=== PATIENT | female | born 1945 | race Caucasian/White ===

== ENCOUNTER 2020-03-01 15:20 | Emergency (ER) | payer MEDICARE ==
[~2020-03-01] VITALS: Ht 154.9 cm; Wt 60.0 kg
[2020-03-01 15:50] VITALS: BP 167/89
== END 2020-03-01 17:12 | disposition left against medical advice (07) ==
LOC: ER 15:20
DX: S01.511A Laceration without foreign body of lip, initial encounter (principal); M25.522 Pain in left elbow; Z53.21 Procedure and treatment not carried out due to patient leaving prior to being seen by health care provider; W18.09XA Striking against other object with subsequent fall, initial encounter; Y93.89 Activity, other specified; Y92.89 Other specified places as the place of occurrence of the external cause; Y99.8 Other external cause status

== ENCOUNTER 2021-07-11 14:55 | Emergency (ER) | payer MEDICARE ==
[~2021-07-11] VITALS: Ht 154.9 cm; Wt 56.3 kg
--- NOTE | 2021-07-11 15:50 | RAD ---
AP chest. HISTORY: Syncope AP view was taken of the chest. Lungs are free of acute infiltrates. The aorta is mildly enlarged and tortuous. The heart is upper normal in size. There is no pleural effusion. IMPRESSION: 1. No acute infiltrates. Electronically signed by: Brandon Newell MD (07/11/2021 3:48 PM) [id number]
[2021-07-11 16:04] LABS: BASO % 1 % (0-3); EOS # 0.1 x10^3/uL (0.0-0.7); EOS % 1 % (0-3); HEMATOCRIT 36.2 % (36.0-47.0); LYMPH # 1.1 x10^3/uL (1.0-4.8); LYMPH % 20 % (24-48); MEAN CORPUSCULAR HEMOGLOBIN 29 pg (25-35); MEAN CORPUSCULAR HGB CONC 33 g/dL (31-37); MEAN CORPUSCULAR VOLUME 88 fL (79-100); MONO # 0.4 x10^3/uL (0.0-1.1); MONO % 8 % (0-9); NEUT # 3.8 x10^3/uL (1.8-7.7); NEUT % 70 % (31-73); PLATELET COUNT 278 x10^3/uL (140-400); RED CELL DISTRIBUTION WIDTH 14.4 % (11.5-14.5); WHITE BLOOD COUNT 5.4 x10^3/uL (4.0-11.0)
[2021-07-11 16:10] LABS: AMPHETAMINE/METHAMPHETAMINE NEG (NEG); BARBITURATES NEG (NEG); BENZODIAZEPINES NEG (NEG); CANNABINOIDS NEG (NEG); COCAINE NEG (NEG); METHADONE NEG (NEG); OPIATES NEG (NEG); PHENCYCLIDINE NEG (NEG)
[2021-07-11 16:12] LABS: CALCIUM 8.7 mg/dL (8.5-10.1); CREATININE 0.9 mg/dL (0.6-1.0); GFR 60.9; POTASSIUM 3.9 mmol/L (3.5-5.1)
[2021-07-11 16:18] LABS: ALBUMIN 3.2 g/dL (3.4-5.0); ALBUMIN/GLOBULIN RATIO 0.8 (1.0-1.7); TOTAL BILIRUBIN 0.3 mg/dL (0.2-1.0); TOTAL PROTEIN 7.2 g/dL (6.4-8.2)
--- NOTE | 2021-07-11 17:08 | RAD ---
CT Head and cervical spine without contrast Indication: Reason: trip/fall / Spl. Instructions: / History: Date of service:07/11/2021 4:46 PM. Comparison: None available. Technique: Helical acquisitions are obtained from the foramen magnum to the vertex and through the ce rvical spine without IV contrast. Sagittal and coronal reformatted images are obtained and reviewed . CT head findings: The ventricles are midline without evidence of dilatation. Mild atrophy is noted. Normal briggs-white differentiation is maintained. There is no extra axial fluid collection, intraparenchymal hemorrhage or mass lesion. The visualized portions of the orbits, paranasal sinuses and the mastoid air cells appear clear. The calvarium is intact. Impression: 1. No acute intracranial process detected. End impression CT cervical spine findings: Normal sagittal alignment is preserved. Craniocervical and C1-2 articulation appears preserved. The v ertebral body heights are maintained. There is narrowing of C5/6 and C6/7 disc spaces, the remainder of intravertebral disc spaces are maintained. There is no sarah or retrolisthesis. There is no perc ajay of facets No prevertebral soft tissue swelling is identified. There are no fractures. No defini te lymphadenopathy or masses are seen within the neck. The visualized thyroid and salivary glands ap pears preserved. Impression: No acute abnormality seen in the CT scan cervical spine. 2. Spondylotic changes and multilevel disc degenerative changes are present. PQRS Compliance Statement: One or more of the following individualized dose reduction techniques were utilized for this examinat ion: 1. Automated exposure control 2. Adjustment of the mA and/or kV according to patient size 3. Use of iterative reconstruction technique Electronically signed by: Ale Parker MD (07/11/2021 5:06 PM) [facility]PITALCailin
[2021-07-11 17:10] VITALS: BP 144/65
--- NOTE | 2021-07-11 17:25 | PHYS DOC ---
Past Medical History Past Medical History: Hypertension Past Surgical History: No Surgical History Smoking Status: Never Smoker Alcohol Use: None General Adult EDM: Chief Complaint: SYNCOPE HPI: HPI: 75-year-old female past medical history of hypertension, hyperlipidemia, essential tremors (on propanolol) and "plaque buildup, I'm on a statin," presents to the ED with complaints [place]. Reports she fell forward landing on her knees and hit her head. Son states she passed out and rolled her eyes backwards, patient states she was conscious the entire time. Patient with no prior head or neck injury. No history of syncope. Has no underlying cardiac arrhythmias or history of coronary artery disease but does have a stress test next week with Dr. Faustin in [place]. Denies any alcohol or drug use. Has no active complaints in the ED. States "I think my son was overreacting when I fell." Pt recalls the features of the gentlemen that helped her up and states "I remember everything." Review of Systems: Review of Systems: Constitutional: Denies fever or chills. [] Eyes: Denies change in visual acuity. [] HENT: Denies nasal congestion or sore throat. [] Respiratory: Denies cough or shortness of breath. [] Cardiovascular: Denies chest pain or edema. [] GI: Denies abdominal pain, nausea, vomiting, bloody stools or diarrhea. [] : Denies saddle anesthesia or incontinence Musculoskeletal: Denies back pain or joint pain. [] Integument: Denies rash or diaphoresis Neurologic: Denies headache or midline neck pain Endocrine: Denies polyuria or polydipsia. [] Lymphatic: Denies swollen glands. [] Psychiatric: Denies depression or anxiety. [] Heart Score: C/O Chest Pain: No Risk Factors: Risk Factors: DM, Current or recent (<one month) smoker, HTN, HLP, family history of CAD, obesity. Risk Scores: Score 0 - 3: 2.5% MACE over next 6 weeks - Discharge Home Score 4 - 6: 20.3% MACE over next 6 weeks - Admit for Clinical Observation Score 7 - 10: 72.7% MACE over next 6 weeks - Early Invasive Strategies Allergies: Allergies: Allergies Coded Allergies Type Severity Reaction Last Updated Verified No Known Drug Allergies 07/11/21 No Physical Exam: PE: Constitutional: Well developed, well nourished, no acute distress, non-toxic appearance. HENT: Normocephalic, atraumatic, moist mucous membranes Eyes: Both equal and reactive, EOMI, conjunctiva normal, no discharge. Neck: Normal range of motion, supple,Nexus C-spine criteria are negative: There is no post midline tenderness, the patient is not intoxicated, there is a normal level of alertness, there are no focal neurologic deficits and there are no distracting injuries Cardiovascular: S1/2 present, regular rhythm Lungs & Thorax: Speaking in full sentences, bilateral equal chest rise, no t achypnea or increased work of breathing Abdomen: soft, no tenderness, Skin: Warm, dry, no erythema, no rash. [] Back: No midline spinal step-offs or tenderness, no CVA tenderness. [] Extremities: No tenderness, no cyanosis, no unilateral lower extremity edema Neurologic: Alert and oriented X 3, normal motor function, normal sensory function, no focal deficits noted. [] Psychologic: Affect normal, judgement normal, mood normal. [] Current Patient Data: Labs: Laboratory Tests Test 07/11/21 15:50 07/11/21 15:53 White Blood Count 5.4 x10^3/uL (4.0-11.0) Red Blood Count 4.10 x10^6/uL (3.50-5.40) Hemoglobin 12.0 g/dL (12.0-15.5) Hematocrit 36.2 % (36.0-47.0) Mean Corpuscular Volume 88 fL (79-100) Mean Corpuscular Hemoglobin 29 pg (25-35) Mean Corpuscular Hemoglobin Concent 33 g/dL (31-37) Red Cell Distribution Width 14.4 % (11.5-14.5) Platelet Count 278 x10^3/uL (140-400) Neutrophils (%) (Auto) 70 % (31-73) Lymphocytes (%) (Auto) 20 % (24-48) L Monocytes (%) (Auto) 8 % (0-9) Eosinophils (%) (Auto) 1 % (0-3) Basophils (%) (Auto) 1 % (0-3) Neutrophils # (Auto) 3.8 x10^3/uL (1.8-7.7) Lymphocytes # (Auto) 1.1 x10^3/uL (1.0-4.8) Monocytes # (Auto) 0.4 x10^3/uL (0.0-1.1) Eosinophils # (Auto) 0.1 x10^3/uL (0.0-0.7) Basophils # (Auto) 0.0 x10^3/uL (0.0-0.2) Sodium Level 138 mmol/L (136-145) Potassium Level 3.9 mmol/L (3.5-5.1) Chloride Level 105 mmol/L (98-107) Carbon Dioxide Level 28 mmol/L (21-32) Anion Gap 5 (6-14) L Blood Urea Nitrogen 27 mg/dL (7-20) H Creatinine 0.9 mg/dL (0.6-1.0) Estimated GFR (Cockcroft-Gault) 60.9 BUN/Creatinine Ratio 30 (6-20) H Glucose Level 156 mg/dL (70-99) H Calcium Level 8.7 mg/dL (8.5-10.1) Magnesium Level 2.0 mg/dL (1.8-2.4) Total Bilirubin 0.3 mg/dL (0.2-1.0) Aspartate Amino Transferase (AST) 18 U/L (15-37) Alanine Aminotransferase (ALT) 25 U/L (14-59) Alkaline Phosphatase 90 U/L (46-116) Troponin I High Sensitivity 6 ng/L (4-50) ZO-Vmy-F-Type Natriuretic Peptide 296 pg/mL (0-449) Total Protein 7.2 g/dL (6.4-8.2) Albumin 3.2 g/dL (3.4-5.0) L Albumin/Globulin Ratio 0.8 (1.0-1.7) L Urine Opiates Screen Neg (NEG) Urine Methadone Screen Neg (NEG) Urine Barbiturates Neg (NEG) Urine Phencyclidine Screen Neg (NEG) Urine Amphetamine/Methamphetamine Neg (NEG) Urine Benzodiazepines Screen Neg (NEG) Urine Cocaine Screen Neg (NEG) Urine Cannabinoids Screen Neg (NEG) Urine Ethyl Alcohol Neg (NEG) Laboratory Tests 07/11/21 15:50 Laboratory Tests 07/11/21 15:50 Vital Signs: Vital Signs Date Time Temp Pulse Resp B/P (MAP) Pulse Ox O2 Delivery O2 Flow Rate FiO2 07/11/21 16:00 66 14 133/70 (91) 100 07/11/21 15:15 98.3 Room Air 98.3 EKG: EKG: Patient is 70 bpm, no axis deviation, normal intervals, S1Q3T3 present, no ST elevation or ST depression, no active chest pain or shortness of breath Radiology/Procedures: Radiology/Procedures: IMAGING REPORT Signed PATIENT: ANITA CASTRO JACCOUNT: [id number] : 1945 LOCATION: ER AGE: 75 SEX: F EXAM STATUS: PRE ER ORD. PHYSICIAN: KENDRA ACOSTA DO REASON: trip/fall PROCEDURE: CT HEAD AND CERVICAL SPINE WO CT Head and cervical spine without contrast Indication: Reason: trip/fall / Spl. Instructions: / History: Date of service:07/11/2021 4:46 PM. Comparison: None available. Technique: Helical acquisitions are obtained from the foramen magnum to the vertex and through the cervical spine without IV contrast. Sagittal and coronal reformatted images are obtained and reviewed. CT head findings: The ventricles are midline without evidence of dilatation. Mild atrophy is noted. Normal briggs-white differentiation is maintained. There is no extra axial fluid collection, intraparenchymal hemorrhage or mass lesion. The visualized portions of the orbits, paranasal sinuses and the mastoid air cells appear clear. The calvarium is intact. Impression: 1. No acute intracranial process detected. End impression CT cervical spine findings: Normal sagittal alignment is preserved. Craniocervical and C1-2 articulation appears preserved. The vertebral body heights are maintained. There is narrowing of C5/6 and C6/7 disc spaces, the remainder of intravertebral disc spaces are maintained. There is no sarah or retrolisthesis. There is no perching of facets No prevertebral soft tissue swelling is identified. There are no fractures. No definite lymphadenopathy or masses are seen within the neck. The visualized thyroid and salivary glands appears preserved. Impression: No acute abnormality seen in the CT scan cervical spine. 2. Spondylotic changes and multilevel disc degenerative changes are present. PQRS Compliance Statement: One or more of the following individualized dose reduction techniques were utilized for this examination: 1. Automated exposure control 2. Adjustment of the mA and/or kV according to patient size 3. Use of iterative reconstruction technique Electronically signed by: Ale Parker MD (07/11/2021 5:06 PM) [facility] DICTATED and SIGNED BY: ALE PARKER MD DATE: 07/11/21 170 IMAGING REPORT Signed PATIENT: ANITA CASTRO JACCOUNT: [id number] : 1945 LOCATION: ER AGE: 75 SEX: F EXAM STATUS: PRE ER ORD. PHYSICIAN: KENDRA ACOSTA DO REASON: syncope PROCEDURE: PORTABLE CHEST 1V AP chest. HISTORY: Syncope AP view was taken of the chest. Lungs are free of acute infiltrates. The aorta is mildly enlarged and tortuous. The heart is upper normal in size. There is no pleural effusion. IMPRESSION: 1. No acute infiltrates. Electronically signed by: Brandon Newell MD (07/11/2021 3:48 PM) [id number] DICTATED and SIGNED BY: BRANDON NEWELL MD DATE: 07/11/21 1546 Course & Med Decision Making: Course & Med Decision Making Pertinent Labs and Imaging studies reviewed. (See chart for details) Concern for accidental mechanical fall with blunt head injury and possible loss of consciousness. CT imaging with no traumatic injury. Basic labs unremarkable. Has no active chest pain, shortness of breath or confusion. Patient is hemodynamically stable, well-appearing with no signs of trauma. Denies any recent illnesses and is tolerating oral intake. Will discharge home with strict ED return precautions were given for confusion, severe headache, nausea or vomiting. Encouraged urgent outpatient follow-up with PMD for reevaluation. Life-threatening processes were considered but are low suspicion at this time, given history, physical exam and ED workup. Pt was educated on all prescription medications and adverse effects. All patient's questions were answered and pt was stable at time of discharge. Life/limb-threatening differential includes but is not limited to, intracranial hemorrhage, diffuse axonal injury, spinal cord syndrome, unstable cervical fracture or SCIWORA, fractures or joint dislocations, neurovascular injuries, organ injury or laceration, pneumothorax, pneumoperitoneum, pericardial tamponade, unstable pelvic fracture, compartment syndrome, flail chest or respiratory distress, burn injury or asphyxiation I have spoken with the patient and/or caregivers. I explained the patient's condition, diagnoses and treatment plan based on the information available to me at this time. I have answered the patient and/or caregiver's questions and addressed any concerns. The patient and/or caregivers have a good understanding of patient's diagnosis, condition and treatment plan as can be expected at this point. Vital signs have been stable. Patient's condition is stable and appropriate for discharge from the emergency department. Patient will pursue further outpatient evaluation with primary care physician or other designated or consulting physician as outlined in the discharge instructions. The patient and/or caregivers are agreeable to this plan of care and follow-up instructions have been explained in detail. The patient and/or caregivers have received these instructions in written form and have expressed an understanding of the discharge instructions. The patient and/or caregivers are aware that any significant change of condition or worsening of symptoms should prompt immediate return to this or the closest emergency department or call to 1[facility]kel Christian Disclaimer: Gino Disclaimer: This electronic medical record was generated, in whole or in part, using a voice recognition dictation system. Departure Departure Impression: Primary Impression: Accident due to mechanical fall without injury Additional Impression: Blunt head injury Disposition: 01 HOME / SELF CARE / HOMELESS Condition: STABLE Referrals: [facility] (PCP) Follow-up with your primary care physician in 2 to 3 days for reevaluation OR FOLLOW UP WITH FAMILY MEDICINE: [address] [place] [address] Patient Instructions: Fall Prevention and Home Safety, Head Injury, Adult Additional Instructions: Return to the ED if you develop any severe headache, confusion or intractable nausea or vomiting EMERGENCY DEPARTMENT GENERAL DISCHARGE INSTRUCTIONS Thank you for coming to [facility] Emergency Department (ED) today and trusting us with you care. We trust that you had a positive experience in our Emergency Department. If you wish to speak to the department management, you may call the Director at [phone]. YOUR FOLLOW UP INSTRUCTIONS ARE FOLLOWS: 1. Do you have a private Doctor? If you do not have a private doctor, please ask for a resource list of physicians or clinics that may be able to assist you with follow up care. 2. The Emergency Physicain has interpreted your x-rays. The X-Ray specialist will also review them. If there is a change in the findings, you will be notified in 48 hours when at all possible. 3. A lab test or culture has been done, your results will be reviewed and you will be notified if you need a change in treatment. ADDITIONAL INSTRUCTIONS AND INFORMATION: 1. Your care today has been supervised by a physician who is specially trained in emergency care. Many problems require more than one evaluation for a complete diagnosis and treatment. We recommend that you schedule your follow up appointment as re commended to ensure complete treatment of you illness or injury. If you are unable to obtain follow up care and continue to have a problem, or if your condition worsens, we recommend that you return to the ED. 2. We are not able to safely determine your condition over the phone nor are we able to give sound medical advice over the phone. For these safety reasons, if you call for medical advice we will ask you to come to the ED for further evaluation. 3. If you have any questions regarding these discharge instructions please call the ED at [phone]. SAFETY INFORMATION: In the interest of safety, wellness, and injury prevention; we encourage you to wear your sealbelt, if you smoke; quite smoking, and we encourage family to use a protective helmet for bicycling and other sporting events that present an increased risk for head injury. IF YOUR SYMPTOMS WORSEN OR NEW SYMPTOMS DEVELOP, OR YOU HAVE CONCERNS ABOUT YOUR CONDITION; OR IF YOUR CONDITION WORSENS WHILE YOU ARE WAITING FOR YOUR FOLLOW UP APPOINTMENT; EITHER CONTACT YOUR PRIMARY CARE DOCTOR, THE PHYSICIAN WHOSE NAME AND NUMBER YOU WERE GIVEN, OR RETURN TO THE ED IMMEDIATELY. KENDRA ACOSTA DO Jul 11, 2021 17:25
--- NOTE | 2021-07-11 19:03 | EKG ---
[facility] [address] [place] [address] Test Date: 2021-07-11 Test Time: 15:05:13 Pat Name: ANITA CASTRO Department: Room: Gender: F Assistant Designer: : 1945 Requested By: KENDRA ACOSTA Order Number: [id number] Reading MD: Gilbert Brand Measurements Intervals [place] Rate: 70 P: 25 LA: 170 QRS: 22 QRSD: 78 T: 18 QT: 394 QTc: 428 Interpretive Statements SINUS RHYTHM NORMAL ECG RI6.02 No previous ECG available for comparison Electronically Signed On 07-12-2021 14:56:52 CDT by Gilbert Brand
== END 2021-07-11 17:41 | disposition home or self-care (01) ==
LOC: ER 14:55
DX: S09.90XA Unspecified injury of head, initial encounter (principal); I10 Essential (primary) hypertension; E78.5 Hyperlipidemia, unspecified; W01.0XXA Fall on same level from slipping, tripping and stumbling without subsequent striking against object, initial encounter; Y93.89 Activity, other specified; Y92.59 Other trade areas as the place of occurrence of the external cause; Y99.8 Other external cause status
CPT/HCPCS: 36415; 70450; 71045; 72125; 80053; 80307; 83735; 83880; 84484; 85025; 93005; 99285-25